=== PATIENT | female | born 2000 | race Hispanic/Latino ===

== ENCOUNTER 2021-04-11 04:47 | Emergency (ER) | payer OTHER ==
[~2021-04-11] VITALS: Ht 149.9 cm; Wt 53.3 kg
[2021-04-11] MEDS ORDERED: IBUPROFEN 800 MG TAB PO ONE (08:05)
[2021-04-11 08:33] LABS: HEMATOCRIT 39.9 % (36.0-47.0); HEMOGLOBIN 12.9 g/dl (12.0-15.5); MEAN CORPUSCULAR HEMOGLOBIN 28.6 pg (27.0-33.0); MEAN CORPUSCULAR HGB CONC 32.3 g/dl (32.0-36.5); MEAN CORPUSCULAR VOLUME 88.5 fl (80.0-96.0); PLATELET COUNT, AUTOMATED 216 10^3/uL (150-450); RED BLOOD COUNT 4.51 10^6/uL (4.00-5.40); WHITE BLOOD COUNT 10.9 10^3/uL (4.0-10.0)
[2021-04-11 09:03] LABS: BLOOD UREA NITROGEN 10 MG/DL (7-18); CARBON DIOXIDE LEVEL 27 MEQ/L (21-32); CHLORIDE LEVEL 107 MEQ/L (98-107); CREATININE FOR GFR 0.45 MG/DL (0.55-1.30); GLUCOSE, FASTING 82 MG/DL (70-100); POTASSIUM SERUM 4.4 MEQ/L (3.5-5.1); SODIUM LEVEL 139 MEQ/L (136-145)
[2021-04-11 09:06] LABS: MONO REFLEX EBV COMP NEGATIVE (NEGATIVE)
[2021-04-11] MEDS ORDERED: IBUP80TA PO (09:37)
[2021-04-11] MEDS ORDERED: PENI500T PO (09:37)
[2021-04-11 09:49] VITALS: BP 127/61
[2021-04-12 17:07] LABS: EBV VIRAL CAPSID AG IgM <36.0 U/mL (0.0-35.9)
== END 2021-04-11 09:50 | disposition home or self-care (01) ==
LOC: M ED 04:47
DX: J02.9 Acute pharyngitis, unspecified (principal); J03.90 Acute tonsillitis, unspecified; J35.1 Hypertrophy of tonsils